=== PATIENT | female | born 1970 | race Caucasian/White ===

== ENCOUNTER 2018-02-08 12:25 | Emergency (ER) | payer OTHER, SELFPAY ==
[2018-02-08] MEDS ORDERED: HYDROcodone/Acetaminophen 5/325 mg Tablet ONE (13:54)
--- NOTE | 2018-02-08 14:19 | RAD ---
RIGHT ANKEL 3 VIEWS: Date: 02/08/18 HISTORY: Right ankle pain. FINDINGS/IMPRESSION: There is a mildly displaced oblique fracture involving the distal fibula. Soft tissue swelling is pre sent. POS: C
== END 2018-02-08 15:09 | disposition home or self-care (01) ==
LOC: ERS 12:25
DX: S82.431A Displaced oblique fracture of shaft of right fibula, initial encounter for closed fracture (principal); F17.210 Nicotine dependence, cigarettes, uncomplicated; X50.1XXA Overexertion from prolonged static or awkward postures, initial encounter
CPT/HCPCS: 29515

== ENCOUNTER 2021-03-18 09:27 | Outpatient (CLI) | payer OTHER | END 2021-03-18 09:28 | disposition home or self-care (01) | LOC: ULT 09:27 | PROVIDERS: ATTEND Registered Nurse | DX: R10.9 Unspecified abdominal pain (principal) | CPT/HCPCS: 76700; 76857 ==

== ENCOUNTER 2021-04-12 07:21 | Outpatient (CLI) | payer OTHER ==
[2021-04-12] MEDS ORDERED: Iopamidol 370 76% 100 ML VIAL ONE (14:28)
== END 2021-04-12 07:22 | disposition home or self-care (01) ==
LOC: CT 07:21
PROVIDERS: ATTEND Registered Nurse
DX: R10.11 Right upper quadrant pain (principal); K76.9 Liver disease, unspecified; D73.89 Other diseases of spleen; N85.8 Other specified noninflammatory disorders of uterus
CPT/HCPCS: 74178; Q9967